=== PATIENT | male | born 1975 | race Two or more races ===

== ENCOUNTER 2017-10-14 18:59 | Emergency (ER) | payer OTHER ==
[~2017-10-14] VITALS: Ht 170.2 cm; Wt 86.2 kg
[2017-10-14] MEDS ORDERED: GRALISE1 EACH (19:28)
== END 2017-10-14 22:46 | disposition home or self-care (01) ==
LOC: ER 18:59
DX: M50.00 Cervical disc disorder with myelopathy, unspecified cervical region (principal)